=== PATIENT | male | born 1945 | race Caucasian/White ===

== ENCOUNTER 2017-05-27 14:35 | Inpatient (IN) | payer MEDICARE, OTHER ==
[~2017-05-27] VITALS: Ht 185.4 cm; Wt 130.9 kg
[~2017-05-27 14:35] MED LIST: ASPI-628 PO; ATOR40TA69 PO; CARV6.25 PO; CLOP75TA3 PO; ESOM40CA41 PO; HYDR25TA4 PO; INSU100I SUBQ; INSU100V7 SUBQ; METF500T4 PO; NITR0.4T SL; TAMS0.4C98 PO
--- NOTE | 2017-05-27 15:09 | ED.REPORT ---
HPI-Chest Pain 40 and Over Date of Service May 27, 2017 ED Provider: Dr. Galeano Pt is a 71 year old male with a hx of stents x2, DM, HTN and GERD presenting to the ED via EMS complaining of 5/10 chest pain onset at work while doing heavy lifting at 1350 today. The pain is currently at about a 1.5/10 and he describes it as a dull pressure. He denies any numbness, SOB, nausea, vomiting, fever, or any other symptoms. About 3 years ago he had similar pain and was admitted to [facility]. Nursing Notes Stated Complaint: CHEST PAIN Chief Complaint: chest pain Nursing Notes Reviewed: Yes Allergies: Coded Allergies: No Known Allergies (Unverified , 12/07/13) Scheduled Aspirin (Aspir 81) 81 Mg Tablet.dr 81 MG PO DAILY Atorvastatin Calcium (Atorvastatin Calcium) 40 Mg Tablet 40 MG PO DAILY Carvedilol (Coreg) 6.25 Mg Tablet 6.25 MG PO DAILY Clopidogrel Bisulfate (Plavix) 75 Mg Tablet 75 MG PO DAILY last dose 02/24 Esomeprazole Magnesium (Nexium) 40 Mg Capsule.dr 40 MG PO DAILY Hydrochlorothiazide (Hydrochlorothiazide) 25 Mg Tablet 25 MG PO DAILY Insulin Glargine (Lantus U100 Insulin Vial) 100 Unit/Ml Vial 40 UNIT SUBQ QPM- INSULIN Metformin (Metformin) 500 Mg Tablet 500 MG PO BIDWM am/ afternoon Metformin (Metformin) 500 Mg Tablet 750 MG PO DAILYWM PM dose Tamsulosin (Flomax) 0.4 Mg Capsule 0.4 MG PO DAILY Scheduled PRN Insulin Aspart (NovoLOG U-100 Pen) 100 Unit/Ml Insuln.pen Unknown Dose PRN blood sugar per sliding scale Nitroglycerin SL (Nitrostat) 0.4 Mg Tab.subl 0.4 MG SL Q5MIN PRN PRN For Chest Pain General Time Seen by MD: 15:09 Chief Complaint Chest pain Hx Obtained From: Patient, EMS Arrived By: Ambulance Sudden in Onset?: Yes Onset Occurred: 1 - 4 hours ago Symptom Duration: Since onset Quality: Dull, Painful, Pressure Severity: Current: Pain level 1 out of 10 Severity: Maximum: Pain level 7 out of 10 Recent Healthcare: No recent doctor visit, No recent hospitalization Similar Sx Previous: Yes Past Medical History Past Medical History Hx of kidney stones Bladder papillary urothelial carcinoma, grade 2/3. Reports: Diabetes mellitus, GERD, Hypertension Past Surgical History Cardiac stents x2 Smoking History Current Every Day Smoker, Light Tobacco Smoker Social History Alcohol Use: Denies alcohol use Drug Use: Denies drug use Ambulatory Status Independent Review of Systems Constitutional: Denies: Fever Respiratory: Denies: Shortness of breath Cardiovascular: Reports: Chest pain GI: Denies: Nausea, Vomiting Neurologic: Denies: Numbness Complete sys rev & neg: except as marked. Physical Exam Initial Vital Signs Vital Signs (First) Date Time Temp Pulse Resp B/P Pulse Ox O2 Delivery O2 Flow Rate FiO2 05/27/17 15:10 36.5 74 17 92/66 95 Room Air 05/27/17 16:40 2 Initial VS: Reviewed, Vital signs normal Head / Eyes: Atraumatic, Normocephalic, PERRL ENT: Mucous membranes moist, Conjunctiva normal, No scleral icterus Skin: Warm, Dry, No cyanosis Neurologic: Alert, Oriented, Nonfocal Psychiatric: Mood/affect normal, Behavior normal, Normal thought content General/Constitutional: Awake, Alert, No acute distress Respiratory / Chest: Atraumatic, Breath sounds NL, Breath sounds = bilat, No respiratory distress Cardiovascular: Heart rate NL, Regular rhythm Heart Sounds / Murmur: Positive: Systolic murmur present.. (III/) Abdomen: Atraumatic, Soft, Non-tender Lower Extremity / Pelvis / MS: Atraumatic, Neurologic intact, Vascular intact 2+ edema Interpretation & Diagnostics Lab Results Interpretation Result Diagram: 05/27/17 1535 05/27/17 1535 Test 05/27/17 15:35 White Blood Count 7.7th/mm3 (3.8-10.1) Red Blood Count 4.52mil/mm3 (4.40-5.80) Hemoglobin 13.1g/dL (13.8-17.2) Hematocrit 40.5% (41.0-50.0) Mean Corpuscular Volume 89.6fL (81-100) Mean Corpuscular Hemoglobin 29.0pg (27.0-35.0) Mean Corpuscular Hemoglobin Concent 32.3% (32.0-37.0) Red Cell Distribution Width 14.9% (12.3-15.4) Platelet Count 222bil/L (150-400) Neutrophils (%) (Auto) 74.0% (40-74) Lymphocytes (%) (Auto) 17.4% (14-46) Monocytes (%) (Auto) 6.6% (4-12) Eosinophils (%) (Auto) 1.4% (0-5) Basophils (%) (Auto) 0.3% (0-3) Activated Partial Thromboplast Time 25.9sec (22.8-33.0) Sodium Level 141mEq/L (134-144) Potassium Level 4.1mEq/L (3.5-5.2) Chloride Level 102mEq/L (97-108) Carbon Dioxide Level 26mmol/L (18-29) Blood Urea Nitrogen 28mg/dL (8-27) Creatinine 1.17mg/dL (0.76-1.27) Estimat Glomerular Filtration Rate 66mL/min (>59) Glucose Level 168mg/dL (60-99) Calcium Level 9.3mg/dL (8.5-10.1) Magnesium Level 1.5mg/dL (1.6-2.6) Total Bilirubin 0.4mg/dL (0.0-1.2) Aspartate Amino Transf (AST/SGOT) 17U/L (0-50) Alanine Aminotransferase (ALT/SGPT) 23U/L (0-44) Alkaline Phosphatase 97U/L (25-160) Troponin T 0.042ug/L (0.0-0.011) Total Protein 6.1g/dL (6.4-8.4) Albumin 3.7g/dL (3.4-5.0) Hold Quinonez Top Tube Received (Received) ECG Interpretation ECG Interpretation: RBBB. Normal intervals. No acute ST or T wave changes. RBBB unchanged from previous. Time: 15:28 Interpreted by: ED physician Normal ECG Interpretation: Normal rate (66), Normal sinus rhythm X-Ray Chest Interpretation Chest Xray Interpretation: IMPRESSION: Patchy bibasilar consolidative opacities suggesting aspiration or pneumonia. Recommend clinical correlation and continued radiographic followup. Dictated by: Alex Boston M.D. on 05/27/2017 at 16:22 View: Portable, 1 view Interpretation / Wet Read by: Interpret - Radiologist Re-Eval/Medical Decision Med Decision/Clinical Course Cardiology was paged but they never called back. This patient has a significant cardiac history and presents with concerning chest pain. He had some minimal discomfort upon arrival here that resolved while here. He does not have any acute EKG changes. The patient was not given metoprolol given his low blood pressure. The patient had been given aspirin in the field and once his troponin was back he was started on heparin. Time of Eval: 15:51 Patient Status: Condition improved Re-Evaluation/Progress Note: Chest pain is now resolved. Time of Eval: 16:26 Patient Status: Condition improved Re-Evaluation/Progress Note: Discussed lab results and plan for admission or transfer. Pt understands and agrees. Consultation : Referral / Consult Name: Raman Allan MD Consulted With: Hospitalist Call Returned at: 17:00 Studio Technician Video Operator: Will see patient, Agrees with plan, Accepts admit Counseled Regarding: Diagnosis, Lab results, Need for admission Discharge & Departure Primary Impression: Non-STEMI (non-ST elevated myocardial infarction) Disposition: ADMITTED TO HOSPITAL Discharge Condition All VS Reviewed: Yes Condition: Improved Referrals: Serafin Dyer DO (PCP) Hiwot Attestation Portions of this note were transcribed by Leilani Pedro. I, Dr. Galeano personally performed the history, physical exam and medical decision-making; I reviewed and confirmed the accuracy of the information in the transcribed note. Signed by : Hiwot Kapoor, 05/27/2017. copies to: Serafin Dyer Jena M MD May 27, 2017 15:09 LEILANI PEDRO May 27, 2017 15:22
[2017-05-27 15:10] VITALS: BP 92/66; PULSE 74; RESP 17; O2SAT 95
[2017-05-27 15:50] LABS: BASOPHILS % (AUTO) 0.3 % (0-3); EOSINOPHILS % (AUTO) 1.4 % (0-5); MONOCYTES % (AUTO) 6.6 % (4-12); Mean Corpuscular Volume 89.6 fL (81-100); Platelet Count 222 bil/L (150-400)
[2017-05-27] MEDS ORDERED: Heparin 5,000 Unit/mL Inj IVPUSH ONE (16:25)
[2017-05-27] MEDS ORDERED: Heparin 25K Unit/500mL 0.45 NS 25,000 UNIT in IV Premix 1 EACH IV ONE (16:25)
--- NOTE | 2017-05-27 16:25 | DRSVH ---
PROCEDURE: X-RAY CHEST ONE VIEW, PORTABLE ([id number]) INDICATIONS: CP TECHNIQUE: One view of the chest was acquired. COMPARISON: None. FINDINGS: Surgical changes and devices: None. Lungs and pleura: No pleural effusions or pneumothorax. Patchy bibasilar consolidative opacities Mediastinum: Mediastinal contours appear normal. Heart size is normal. Bones and chest wall: No suspicious bony lesions. Overlying soft tissues appear unremarkable. IMPRESSION: Patchy bibasilar consolidative opacities suggesting aspiration or pneumonia. Recommend cl inical correlation and continued radiographic followup. Dictated by: Alex Boston M.D. on 05/27/2017 at 16:22 Approved by: Alex Boston M.D. on 05/27/2017 at 16:24
[2017-05-27 16:28] LABS: Magnesium 1.5 mg/dL (1.6-2.6)
[2017-05-27 16:31] LABS: TROPONIN T 0.042 ug/L (0.0-0.011)
[2017-05-27 16:40] VITALS: BP 102/61; PULSE 64; RESP 18; O2SAT 95
[2017-05-27] MEDS ORDERED: Magnesium Sulf 2 Gm/50mL Water 2 GM in IV Premix 1 EACH IV ONE (17:00)
[2017-05-27 17:58] VITALS: BP 103/60; PULSE 60; RESP 22; O2SAT 95
[2017-05-27] MEDS ORDERED: Alum-Mag Hydrox-Simeth 30 mL Suspension PO PRN (18:00)
[2017-05-27] MEDS ORDERED: Senna-Docusate 8.6-50 mg Tablet PO PRN (18:00)
[2017-05-27] MEDS ORDERED: Polyethylene Glycol (PEG) 17 Gm Powder PO PRN (18:00)
[2017-05-27] MEDS ORDERED: Ondansetron 2 mg/mL 2 mL Inj IVPUSH PRN (18:00)
[2017-05-27] MEDS ORDERED: Atropine 1 mg/10 mL (Code) Syringe IVPUSH PRN (18:00)
--- NOTE | 2017-05-27 18:15 | PCM.HPMED ---
Subjective Date of Service May 27, 2017 Primary Provider: Admitting Physician: Aditya Lawton MD Primary Care Physician: Serafin Dyer DO Attending Physician: Aditya Lawton MD Chief Complaint: Chest pain History of Present Illness: 71-year-old male with a history of NE with stents 2, 50+ pack year history of smoking, diabetes, and hypertension who presented to emergency department today from his work via EMS due to 710 dull, substernal, nonradiating chest pain that started while he was lifting heavy boxes around 1400. The patient states that the pain set mass chest and did not radiate, was free of diaphoresis, and denies any shortness of breath, lightheadedness, or dizziness. Patient was given nitroglycerin by EMS which he states helped resolve the pain. Patient denies recent fever, chills, nausea, vomiting, or numbness/tingling. Patient's last NE was November 2013 and he states that Dr. Olvera stented to his arteries. Patient states that he was on Plavix until about a year ago when he was instructed to stop taking the Plavix and only take aspirin. Patient states he is compliant with his medications Emergency department the patient's chest pain completely resolved with morphine and nitroglycerin. First troponin returned elevated at 0.042. Patient also has some low magnesium. EKG demonstrated normal sinus rhythm with a right bundle branch block. Review of Systems: Complete review of systems performed; pertinent positives and negatives per history of present illness, all other systems reviewed and are negative Allergies Coded Allergies: No Known Allergies (Unverified , 12/07/13) Home Medications Aspirin (Aspir 81) 81 Mg Tablet.dr 81 MG PO DAILY Atorvastatin Calcium (Atorvastatin Calcium) 40 Mg Tablet 40 MG PO DAILY Carvedilol (Coreg) 6.25 Mg Tablet 6.25 MG PO DAILY Esomeprazole Magnesium (Nexium) 40 Mg Capsule.dr 40 MG PO DAILY Hydrochlorothiazide (Hydrochlorothiazide) 25 Mg Tablet 25 MG PO DAILY Insulin Glargine (Lantus U100 Insulin Vial) 100 Unit/Ml Vial 40 UNIT SUBQ QPM- INSULIN Metformin (Metformin) 500 Mg Tablet 500 MG PO BIDWM am/ afternoon Metformin (Metformin) 500 Mg Tablet 750 MG PO DAILYWM PM dose Tamsulosin (Flomax) 0.4 Mg Capsule 0.4 MG PO DAILY Insulin Aspart (NovoLOG U-100 Pen) 100 Unit/Ml Insuln.pen Unknown Dose PRN blood sugar per sliding scale Nitroglycerin SL (Nitrostat) 0.4 Mg Tab.subl 0.4 MG SL Q5MIN PRN PRN For Chest Pain PMH Type II diabetes Hypertension Papillary bladder urothelial carcinoma GERD Nicotine dependence Surgical History Cardiac stents x2 Family History Mother of lung cancer Social History Hx Alcohol Use: Yes (RARE) Hx Substance Use: No Smoking Status: Current Every Day Smoker (50+ pack years), Light Tobacco Smoker Living Arrangement: with Family Exam Vital Signs Vital Sign - Last Date Time Temp Pulse Resp B/P Pulse Ox O2 Delivery O2 Flow Rate FiO2 05/27/17 17:58 36.3 60 22 103/60 95 Room Air 05/27/17 16:40 2 Exam General: Pleasant appearing male in only mild distress but good humored HEENT: PERRLA, EOMI, nonicteric, membranes moist Lymph: No lymphadenopathy Cardio: Regular rate and rhythm Respiratory: CTA bilaterally; decreased breath sounds bilaterally, mild wheezing Abdomen: Soft, positive bowel sounds, nontender, nondistended Extremities: Mild edema, sensation intact; no clubbing Psych: Appropriate mood and affect Neuro: CN II through XII grossly intact, sensation intact throughout Skin: No rash Lab and Diagnostics Result Diagram: 05/27/17 1535 05/27/17 1535 X-Rays, CTs and MRIs Chest x-ray IMPRESSION: Patchy bibasilar consolidative opacities suggesting aspiration or pneumonia. Recommend clinical correlation and continued radiographic followup Dictated by: Alex Boston M.D. on 05/27/2017 at 16:22 12-lead ECG See history of present illness Assessment & Plan 71-year-old male with numerous cardiac risk factors and previous NE requiring 2 stents presents emergency department with acute chest pain on exertion associated with nitroglycerin with no ST elevations on EKG but positive troponin NSTEMI; present on admission; ongoing -Presents with acute chest pain relieved with nitroglycerin; positive troponin -Numerous cardiac risk factors -ED discussed with Dr. Epstein and cardiology will see the patient tomorrow morning to assess for cath -If any signs of worsening chest pain contact cardiology immediately -Started on heparin drip -Patient took aspirin this morning -We will hold Plavix until sure the patient's nonsurgical candidate -Smoking cessation discussed -Nothing by mouth until tomorrow -Atorvastatin 40 mg taken already today -Echo tomorrow -Morphine and nitroglycerin -Heart rate in the 60s and beta vj with hold -Continue daily aspirin -trend troponin Hypomagnesemia; present on admission; ongoing -Replace with 2 gm Hypertension; present on admission; ongoing -Patient's blood pressure is well controlled at the moment -Continue on carvedilol and hydrochlorothiazide after med rec confirmed Type II diabetes; present on admission; ongoing -Patient is on metformin 500 mg twice a day -Also on 40 units of Lantus at bedtime; NovoLog sliding scale -Continue Lantus 20 units tonight -We will place on low correctional -Hold metformin Nicotine dependence; present on admission; ongoing -[id number] history -Patient currently down to half a pack a day -Nicotine patch -Smoking cessation discussed Hyperlipidemia-continue atorvastatin GERD-famotidine Disposition: Patient is being admitted to inpatient status with expected length of stay greater than two midnights due to to severity of presentation, duration of treatment, and risks of adverse events disposition Full code Pain Evaluation: Adequate Pain Control GI Prophylaxis: H2 vj VTE Prophylaxis: Other (heparin drip) Resuscitation Status: CPR: Attempt Resuscitation Darryl Wood DO May 27, 2017 18:15
[2017-05-27] MEDS ORDERED: Glucose 40% Oral Gel 15 Gm Tube PO PRN (18:25)
[2017-05-27] MEDS ORDERED: Heparin 25K Unit/500mL 0.45 NS 25,000 UNIT in IV Premix 1 EACH IV SCH (18:25)
[2017-05-27 18:38] VITALS: BP 103/60; PULSE 60; RESP 22; O2SAT 95
[2017-05-27 19:27] VITALS: PULSE 59
[2017-05-27 19:30] VITALS: BP 143/65; PULSE 65; RESP 20; O2SAT 95
[2017-05-27] MEDS ORDERED: TAMS0.4C29 PO (20:49)
[2017-05-27] MEDS ORDERED: POTA20TA16 PO (20:49)
[2017-05-27] MEDS ORDERED: IPRA4AER INH (20:49)
[2017-05-27] MEDS ORDERED: INSU100I13 SUBQ (20:49)
[2017-05-27] MEDS ORDERED: FLUT1DIS5 INH (20:49)
[2017-05-27] MEDS ORDERED: FINA5TAB9 PO (20:49)
[2017-05-27] MEDS ORDERED: TRAZ-118 PO (20:49)
[2017-05-27] MEDS ORDERED: OMEP20CA11 PO (20:49)
[2017-05-27] MEDS ORDERED: LOSA100T29 PO (20:49)
[2017-05-27] MEDS ORDERED: ASPI-973 PO (20:51)
[2017-05-27] MEDS: Insulin LISPRO 300 Unit/3 mL Inj SUBQ SCH (20:58)
[2017-05-27] MEDS: 0.9% Sodium Chloride 1,000 ML IV SCH (21:00)
[2017-05-27] MEDS: Sodium Chloride LOK Flush 10 mL Syringe IVFLUSH SCH (21:05)
[2017-05-27 22:29] LABS: APPEARANCE,URINE HAZY (CLEAR,HAZY); COLOR,URINE YELLOW (YELLOW); OCCULT BLOOD,URINE TRACE (NEGATIVE); PH,URINE 5.5 (5.0-8.0); UROBILINOGEN,URINE NORMAL (NORMAL)
[2017-05-27] MEDS: Insulin GLARgine 100 Unit/mL Syringe SUBQ SCH (23:33)
[2017-05-28] VITALS (7 sets, daily range): BP systolic 120–179; BP diastolic 65–88; PULSE 57–65; RESP 20; O2SAT 93–95
[2017-05-28] MEDS: Heparin 5,000 Unit/mL Inj IVPUSH PRN ×4 (01:44→18:45)
[2017-05-28 01:46] LABS: TROPONIN T 0.031 ug/L (0.0-0.011)
[2017-05-28 07:18] LABS: BASOPHILS % (AUTO) 0.3 % (0-3); EOSINOPHILS % (AUTO) 2.2 % (0-5); Mean Corpuscular Hemoglobin 28.6 pg (27.0-35.0); Mean Corpuscular Volume 90.7 fL (81-100); NEUTROPHILS % (AUTO) 69.4 % (40-74); Platelet Count 197 bil/L (150-400)
[2017-05-28] MEDS: Insulin LISPRO 300 Unit/3 mL Inj SUBQ SCH ×4 (07:51→21:17)
[2017-05-28] MEDS: 0.9% Sodium Chloride 1,000 ML IV SCH ×2 (07:51→16:55)
[2017-05-28] MEDS: Sodium Chloride LOK Flush 10 mL Syringe IVFLUSH SCH ×2 (07:52→15:55)
[2017-05-28 07:53] LABS: TROPONIN T 0.03 ug/L (0.0-0.011)
[2017-05-28 08:05] LABS: Magnesium 1.9 mg/dL (1.6-2.6); Phosphorus 4.1 mg/dL (2.5-4.9)
--- NOTE | 2017-05-28 12:59 | DRSVH ---
[facility] [address] [place] [address] Echocardiogram Report Name: JOHN ALVARES LStudy Date: 05/28/2017 Height: 73 in Hospital Exam Location: [facility] Weight: 285 lb Gender: Male BSA: 2.5 m2 : 1945 Age: 71 yrs BP: 126/73 mmHg Reason For Study: Chest pain Ordering Physician: Performed By: Rebekah Kirby Referring Physician: Serafin Dyer Interpretation Summary The left ventricle is normal in size. Left ventricular systolic function is normal without focal wall motion abnormalities. The ejection fraction is estimated to be 60-65%. The right ventricle is normal in size, thickness and function. The right ventricular systolic pressure is estimated at 32 mmHg assuming a right atrial pressure of 8 mm Hg. The left atrium is mildly dilated. Right atrial size is normal. There is moderate aortic stenosis. The calculated aortic valve area is 1.4 cm2. The peak aortic velocity is 3.2 m/sec. The peak aortic velocity on the previous exam was 3.2 m/sec. There is mild aortic regurgitation. There is no other significant valvular heart disease. The aortic root is mildly dilated. The ascending aorta is mild-moderately enlarged. The aortic arch is mildly enlarged. Procedure: A two-dimensional transthoracic echocardiogram with color flow and Doppler was performed. The study quality was technically adequate. Comparison is made with the echocardiogram of 06-17-16. The patient was in normal sinus rhythm during the exam. Left Ventricle: The left ventricle is normal in size. There is borderline concentric left ventricular hypertrophy. Left ventricular systolic function is normal without focal wall motion abnormalities. The ejection fraction is estimated to be 60-65%. Assessment of diastolic parameters indicates normal left ventricular diastolic function and normal filling pressures. Right Ventricle: The right ventricle is normal in size, thickness and function. Atria: The left atrium is mildly dilated. Right atrial size is normal. The interatrial septum is intact with no evidence for an atrial septal defect. Mitral Valve: The mitral valve is normal in structure and function. There is trace mitral regurgitation. Aortic Valve: The aortic valve is trileaflet. The aortic valve is normal in structure but functionally abnormal. There is moderate aortic stenosis. The calculated aortic valve area is 1.4 cm2. The peak aortic velocity is 3.2 m/sec. The peak aortic velocity on the previous exam was 3.2 m/sec. The aortic valve mean gradient is 20 mmHg. Severity ratio is 0.31. There is mild aortic regurgitation. Tricuspid Valve: The tricuspid valve is normal in structure and function. There is trace tricuspid regurgitation. The right ventricular systolic pressure is estimated at 32 mmHg assuming a right atrial pressure of 8 mm Hg. Pulmonic Valve: The pulmonic valve is normal in structure and function. There is trace pulmonic regurgitation. There is no other significant valvular heart disease. Great Vessels: The aortic root is mildly dilated. The ascending aorta is mild-moderately enlarged. The aortic arch is mildly enlarged. The IVC is dilated (diameter is greater than 2.1 cm) yet it collapses greater than 50% with a sniff. This suggests a right atrial pressure of 8 mm Hg. Pericardium/ Pleura There is no pericardial effusion. There is no pleural effusion. MMode/2D Measurements & Calculations LVIDd LA dimension: 4.4 cm RA long axis: 5.9 cm LVOT diam: 2.4 cm : 6.4 cm AoV Openin.6 cm LVIDs LA A2 area: 29.9 cm RA area: 21.2 cm Ao root diam : 4.4 cm LA A4 area: 21.8 cm RA vol: 64.5 ml FS: 30.6 % LA length (vol) RA : 25.8 ml/m Aortic Jxn: 3.5 cm IVSd: 1.1 cm RVDd major: 6.5 cm asc Aorta Diam LVPWd LA vol: 92.9 ml : 0.9cm LA vol index Ao Arch Diam (Prox Trans): 3.5 cm IVC diam: 2.4 cm ELIAZAR (plan) LV roe. diameter/BSA LV sys. diameter/BSA RVD1 (basal) : 2.1 cm2 (cm/m^2): 2.5 (cm/m^2): 1.8 : 4.3 cm RVD2 (mid) : 3.4 cm Doppler Measurements & Calculations Ao V2 max MV E max edmundo MV E/A: 1.3 TR max edmundo : 318.9 cm/sec : 77.8 cm/sec Med Peak E' Edmundo : 247.0 cm/sec Ao max PG MV A max edmundo TR max PG : 40.7 mmHg : 58.7 cm/sec E/E' med: 17.2 : 24.4 mmHg Ao mean PG MV P1/2t: 70.8 msec Lat Peak E' Edmundo PA V2 max : 19.6 mmHg : 68.1 cm/sec LVOT Max Edmundo E/E' lat: 13.9 PA mean PG : 83.3 cm/sec E/e' average : 0.85 mmHg ELIAZAR(I,D): 1.4 cm PA Accel Time sev ratio: 0.31 MV A dur: 0.13 sec : 0.18 sec AI P1/2t : 768.1 msec AI dec slope : 151.6 cm/s2c MV dec time MV P1/2t max edmundo Ao V2 mean LV V1 max PG : 0.24 sec : 201.4 cm/sec Ao V2 VTI: 78.2 cm LV V1 VTI MVA(P1/2t): 3.1 cm2 : 24.4 cm ELIAZAR(V,D): 1.2 cm2 PA V2 mean ELIAZAR indexed to BSA : 41.7 cm/sec (cm^2/m^2): 0.56 Reading Physician:YOAN
--- NOTE | 2017-05-28 17:31 | PCM.PNMED ---
Subjective Date of Service May 28, 2017 Subjective Patient denies any chest pain. He is anxious because he wants to eat and says he has not eaten for 2 days. Exam Vital Signs Vital Sign - Last Date Time Temp Pulse Resp B/P Pulse Ox O2 Delivery O2 Flow Rate FiO2 05/28/17 14:09 36.4 60 20 136/69 95 Nasal Cannula 2.00 Intake and Output 05/27/17 05/27/17 05/28/17 Cumulative From/Thru 15:00 23:00 07:00 05/27/17 15:10 - 05/28/17 06:35 Intake Total 1000 ml 1004 ml 2004 ml Output Total 900 ml 900 ml Balance 1000 ml 104 ml 1104 ml Intake Oral 0 ml 0 ml IV Total 1000 ml 1004 ml 2004 ml Output Urine Total 900 ml 900 ml Exam Constitutional: Middle-aged male who appears older than his stated age Head: Normocephalic atraumatic Chest: Clear to auscultation Cor: Regular rate and rhythm S1-S2 with 2/6 systolic ejection murmur Abdomen: Soft nontender bowel sounds present Extremities: Trace bilateral pedal edema Psych: Patient is somewhat anxious and irritable Neuro: Alert and oriented 3, motor strength is intact bilaterally IVs and Medications Medications Reviewed: Medications were reviewed in detail Lab and Diagnostics Laboratory Tests 72 Hours Test 05/27/17 15:35 05/27/17 18:13 05/27/17 20:55 05/27/17 22:06 White Blood Count 7.7th/mm3 (3.8-10.1) Red Blood Count 4.52mil/mm3 (4.40-5.80) Hemoglobin 13.1g/dL (13.8-17.2) Hematocrit 40.5% (41.0-50.0) Mean Corpuscular Volume 89.6fL (81-100) Mean Corpuscular Hemoglobin 29.0pg (27.0-35.0) Mean Corpuscular Hemoglobin Concent 32.3% (32.0-37.0) Red Cell Distribution Width 14.9% (12.3-15.4) Platelet Count 222bil/L (150-400) Neutrophils (%) (Auto) 74.0% (40-74) Lymphocytes (%) (Auto) 17.4% (14-46) Monocytes (%) (Auto) 6.6% (4-12) Eosinophils (%) (Auto) 1.4% (0-5) Basophils (%) (Auto) 0.3% (0-3) Activated Partial Thromboplast Time 25.9sec (22.8-33.0) Sodium Level 141mEq/L (134-144) Potassium Level 4.1mEq/L (3.5-5.2) Chloride Level 102mEq/L (97-108) Carbon Dioxide Level 26mmol/L (18-29) Blood Urea Nitrogen 28mg/dL (8-27) Creatinine 1.17mg/dL (0.76-1.27) Estimat Glomerular Filtration Rate 66mL/min (>59) Glucose Level 168mg/dL (60-99) Calcium Level 9.3mg/dL (8.5-10.1) Magnesium Level 1.5mg/dL (1.6-2.6) Total Bilirubin 0.4mg/dL (0.0-1.2) Aspartate Amino Transf (AST/SGOT) 17U/L (0-50) Alanine Aminotransferase (ALT/SGPT) 23U/L (0-44) Alkaline Phosphatase 97U/L (25-160) Total Creatine Kinase 327U/L (21-232) Creatine Kinase MB 16.8ng/mL (0.0-10.4) Creatine Kinase MB % 5.1% (0.0-5.0) Troponin T 0.042ug/L (0.0-0.011) 0.031ug/L (0.0-0.011) Total Protein 6.1g/dL (6.4-8.4) Albumin 3.7g/dL (3.4-5.0) Hold Quinonez Top Tube Received (Received) Hemoglobin A1c 8.1% (4.8-5.6) Urine Color Yellow (YELLOW) Urine Appearance Hazy (CLEAR,HAZY) Urine pH 5.5 (5.0-8.0) Urine Specific [place] 1.025 (1.003-1.035) Urine Protein Negativemg/dL (NEG,TRACE) Urine Glucose (UA) 100mg/dL (NEGATIVE) Urine Ketones Negativemg/dL (NEGATIVE) Urine Occult Blood Trace (NEGATIVE) Urine Nitrite Negative (NEGATIVE) Urine Bilirubin Negative (NEGATIVE) Urine Urobilinogen Normalmg/dL (NORMAL) Urine Leukocyte Esterase Negative (NEGATIVE) Urine RBC 3-10/hpf (0-2) Urine WBC 0-5/hpf (0-5) Urine Epithelial Cells Occasional/hpf (NONE-MOD) Urine Crystals None seen (NONE SEEN) Urine Bacteria Few/hpf (NONE-FEW) Urine Hyaline Casts None/lpf (NONE) Urine Granular Casts None seen (NONE SEEN) Urine Waxy Casts None seen (NONE SEEN) Urine Red Blood Cell Casts None seen (NONE SEEN) Urine White Blood Cell Casts None seen (NONE SEEN) Urine Mucus Present (None Seen) Urine Trichomonas None seen (NONE SEEN) Urine Yeast None (NONE SEEN) Urinalysis Comment None Urine Culture Reflexed Not indicated Test 05/28/17 00:34 05/28/17 06:30 05/28/17 12:43 Activated Partial Thromboplast Time 32.4sec (22.8-33.0) 44.8sec (22.8-33.0) 40.6sec (22.8-33.0) Total Creatine Kinase 256U/L (21-232) Creatine Kinase MB 12.4ng/mL (0.0-10.4) Creatine Kinase MB % 4.8% (0.0-5.0) Troponin T 0.031ug/L (0.0-0.011) 0.030ug/L (0.0-0.011) White Blood Count 7.8th/mm3 (3.8-10.1) Red Blood Count 4.41mil/mm3 (4.40-5.80) Hemoglobin 12.6g/dL (13.8-17.2) Hematocrit 40.0% (41.0-50.0) Mean Corpuscular Volume 90.7fL (81-100) Mean Corpuscular Hemoglobin 28.6pg (27.0-35.0) Mean Corpuscular Hemoglobin Concent 31.5% (32.0-37.0) Red Cell Distribution Width 15.0% (12.3-15.4) Platelet Count 197bil/L (150-400) Neutrophils (%) (Auto) 69.4% (40-74) Lymphocytes (%) (Auto) 20.0% (14-46) Monocytes (%) (Auto) 8.0% (4-12) Eosinophils (%) (Auto) 2.2% (0-5) Basophils (%) (Auto) 0.3% (0-3) Sodium Level 138mEq/L (134-144) Potassium Level 3.9mEq/L (3.5-5.2) Chloride Level 100mEq/L (97-108) Carbon Dioxide Level 24mmol/L (18-29) Blood Urea Nitrogen 26mg/dL (8-27) Creatinine 0.97mg/dL (0.76-1.27) Estimat Glomerular Filtration Rate 82mL/min (>59) Glucose Level 149mg/dL (60-99) Calcium Level 9.2mg/dL (8.5-10.1) Phosphorus Level 4.1mg/dL (2.5-4.9) Magnesium Level 1.9mg/dL (1.6-2.6) Total Bilirubin 0.3mg/dL (0.0-1.2) Aspartate Amino Transf (AST/SGOT) 17U/L (0-50) Alanine Aminotransferase (ALT/SGPT) 22U/L (0-44) Alkaline Phosphatase 99U/L (25-160) Total Protein 6.1g/dL (6.4-8.4) Albumin 3.5g/dL (3.4-5.0) Triglycerides Level 192mg/dL (0-149) Cholesterol Level 127mg/dL (100-199) LDL Cholesterol, Calculated 51.600mg/dL (0-99) VLDL Cholesterol 38.400mg/dL HDL Cholesterol 37mg/dL (>39) Cholesterol/HDL Ratio 3.43 (0.0-4.4) Procalcitonin 0.10ng/mL (0.00-0.08) Result Diagram: 05/28/1762905/28/17 0630 X-Rays, CTs and MRIs Chest x-ray IMPRESSION: Patchy bibasilar consolidative opacities suggesting aspiration or pneumonia. Recommend clinical correlation and continued radiographic followup Dictated by: Alex Boston M.D. on 05/27/2017 at 16:22 12-lead ECG See history of present illness Cardiac Echo Impressions Name: JOHN ALVARES LStudy Date: 0 05/28/2017 Height: 73 in Hospital Exam Location: [facility] Weight: 285 lb Gender: Male BSA: 2.5 m2 : 1945 Age: 71 yrs BP: 126/73 mmHg Reason For Study: Chest pain Ordering Physician: Performed By: Rebekah Kirby Referring Physician: Serafin Dyer Interpretation Summary The left ventricle is normal in size. Left ventricular systolic function is normal without focal wall motion abnormalities. The ejection fraction is estimated to be 60-65%. The right ventricle is normal in size, thickness and function. The right ventricular systolic pressure is estimated at 32 mmHg assuming a right atrial pressure of 8 mm Hg. The left atrium is mildly dilated. Right atrial size is normal. There is moderate aortic stenosis. The calculated aortic valve area is 1.4 cm2. The peak aortic velocity is 3.2 m/sec. The peak aortic velocity on the previous exam was 3.2 m/sec. There is mild aortic regurgitation. There is no other significant valvular heart disease. The aortic root is mildly dilated. The ascending aorta is mild-moderately enlarged. The aortic arch is mildly enlarged. Assessment & Plan 71-year-old male with numerous cardiac risk factors and previous GA requiring 2 stents presents emergency department with acute chest pain on exertion associated with nitroglycerin with no ST elevations on EKG but positive troponin NSTEMI; present on admission; ongoing -Presents with acute chest pain relieved with nitroglycerin; positive troponin -Numerous cardiac risk factors -ED discussed with Dr. Epstein and cardiology will see the patient today to assess for cath -If any signs of worsening chest pain contact cardiology immediately -Started on heparin drip -Patient took aspirin this morning -We will hold Plavix until sure the patient's nonsurgical candidate -Smoking cessation discussed -Nothing by mouth until tomorrow -Atorvastatin 40 mg daily -Echo which was done today see report -Morphine and nitroglycerin -Heart rate in the 60s and beta vj with hold -Continue daily aspirin -trend troponin -Await cardiology seeing the patient today who was called by nursing and patient will not be having a cardiac catheterization today so he is allowed to eat Hypomagnesemia; present on admission; ongoing -Replace with 2 gm Hypertension; present on admission; ongoing -Patient's blood pressure is well controlled at the moment -Continue on carvedilol and hydrochlorothiazide after med rec confirmed Type II diabetes; present on admission; ongoing -Patient is on metformin 500 mg twice a day -Also on 40 units of Lantus at bedtime; NovoLog sliding scale -Continue Lantus 20 units tonight -We will place on low correctional -Hold metformin Nicotine dependence; present on admission; ongoing -[id number] history -Patient currently down to half a pack a day -Nicotine patch -Smoking cessation discussed Hyperlipidemia-continue atorvastatin GERD-famotidine Full code GI Prophylaxis: H2 vj VTE Prophylaxis: Other (heparin drip) Resuscitation Status: CPR: Attempt Resuscitation Time spent 30 minutes Eloise Pruett MD May 28, 2017 17:31
[2017-05-28] MEDS: Insulin GLARgine 100 Unit/mL Syringe SUBQ SCH (21:23)
[2017-05-29] VITALS (13 sets, daily range): BP systolic 128–160; BP diastolic 67–98; PULSE 48–72; RESP 14–24; O2SAT 91–96
[2017-05-29] MEDS: Sodium Chloride LOK Flush 10 mL Syringe IVFLUSH SCH ×5 (00:51→16:30)
[2017-05-29] MEDS: Heparin 5,000 Unit/mL Inj IVPUSH PRN ×3 (00:52→13:27)
[2017-05-29] MEDS ORDERED: 0.9% Sodium Chloride 1,000 ML IV ONE (02:40)
--- NOTE | 2017-05-29 03:23 | CONS ---
[address] [address] CONSULTATION REPORT PATIENT: JOHN ALVARES : 1945 MR#: [id number] ADMIT: 05/27/2017 JOB ID: [id number] DATE OF SERVICE: 05/28/2017 CHIEF COMPLAINT: Chest pain. HISTORY OF PRESENT ILLNESS: This is a 71-year-old man with a history of coronary artery disease, status post percutaneous coronary intervention to right coronary artery and circumflex performed November 2013. 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 He was unloading heavy items such as four boxes of antifreeze and other equipment. While he was unloading boxes, he developed severe substernal chest pain which felt like heartburn. It felt very similar to his prior documented angina, but was somewhat milder in intensity relative to severe pain he had experienced back in 2013. Nevertheless, it was 7/10 in intensity. His transmitter supervisor commented that he did not look well. His colleagues called 911. When medics arrived, he received three doses of sublingual nitroglycerin five minutes apart. He said that the first nitroglycerin took his pain level down from 8/10 to 7/10, the second pill took it down to 4/10, and third pill took it down to 1/10. At this moment in time, he is pain free. Cardiology is consulted to assist with management because of mild troponin T elevation in the setting of normal renal function. PAST MEDICAL HISTORY: 1. History of kidney stones. 2. Bladder papillary urothelial carcinoma. 3. Diabetes. 4. Hypertension. 5. Reflux. 6. History of chronic stable angina, status post two Xience drug-eluting stent deployed to the LAD. FAMILY HISTORY: Mom from lung cancer. SOCIAL HISTORY: He smokes, but wants to quit. He lives with his and he works at an [employer] store. He rarely drinks alcohol. REVIEW OF SYSTEMS: The patient denies hematuria or bright red blood per rectum. He reports shortness of breath and believes he may have COPD. Otherwise, 10 point review of systems is negative. HOME MEDICATIONS: 1. Aspirin 81 mg daily. 2. Lipitor 40 mg daily. 3. Carvedilol 6.25 mg once a day. 4. Losartan 100 mg daily. 5. Hydrochlorothiazide 25 mg daily. 6. Potassium chloride 20 mEq daily. 7. Omeprazole 20 mg daily. 8. Combivent Respimat one puff daily. 9. Advair 500/50 one puff twice a day. 10. Trazodone 100 mg daily. 11. Omeprazole 20 mg daily. 12. Tamsulosin 0.4 mg daily. 13. Lantus 75 units at night. 14. Aspart sliding scale insulin. 15. Metformin. It looks like he takes metformin 500 mg in the morning and 1000 mg at night. 16. Finasteride 5 mg daily. CURRENT MEDICATIONS IN THE HOSPITAL: 1. Atorvastatin 40 mg daily. 2. Carvedilol 6.25 mg twice a day. 3. Heparin drip per ACS protocol. 4. Lantus 20 units at night. 5. Aspirin 81 mg daily. 6. Lispro sliding scale insulin. 7. For whatever reason, it looks like his losartan is on hold. PHYSICAL EXAMINATION: Vital signs: Temperature 36.6. Blood pressure 120/65, up to 129/80. Pulse 57, up to 65 beats per minute. Satting 93% to 95% on 1-2 L nasal cannula. Chronically ill-appearing man in no apparent distress. Eyes: No scleral icterus. Neck: Supple. There is a left-sided carotid bruit. Heart: Normal S1, S2. There is a 3/6 systolic ejection murmur at right upper sternal border. Lungs with diminished breath sounds bilaterally and coarse crackles. Abdomen: Soft with positive bowel sounds. No hepatosplenomegaly. Extremities: Warm, well perfused. His fingers are clubbed. No cyanosis and no edema. Skin: No rashes or lesions. He has discoloration of his facial hair due to smoking. Vascular exam demonstrates intact right common femoral artery pulse with no bruit. LABORATORIES: Reviewed. His creatinine is 1. Transaminases are normal. Troponin T is 0.03. Lipids are at goal. IMAGING: Chest x-ray showed patchy bibasilar opacity suggesting aspiration or pneumonia. Echocardiogram shows moderate aortic stenosis, peak velocity 3 m/sec, normal wall motion and LV systolic function. EKG demonstrates right bundle-branch block. Normal axis. No left ventricular hypertrophy. No significant ST-segment changes. ASSESSMENT AND PLAN: In summary, this is a 71-year-old man with mildly elevated troponin, but classical substernal chest discomfort relieved by nitro in the setting of exertion. The patient has documented history of coronary artery disease and had intervention two years ago. Unfortunately, he continues to smoke. I recommend cardiac catheterization for this patient to elucidate whether he has progression of coronary artery disease. Consent obtained. All questions answered. Thank you very much for the opportunity to participate in this patient's care. Hypertension. I recommend restarting his home losartan. Medical therapy for non-STEMI, heparin until his cath is complete.
[2017-05-29] MEDS: 0.9% Sodium Chloride 1,000 ML IV SCH (04:57)
[2017-05-29] MEDS: Insulin LISPRO 300 Unit/3 mL Inj SUBQ SCH ×3 (08:00→17:30)
--- NOTE | 2017-05-29 13:48 | PCM.PNMED ---
Subjective Date of Service May 29, 2017 Subjective Patient rounded on this morning and is upset that he again is nothing by mouth waiting For procedure. Denies any recurrent symptoms. Exam Vital Signs Vital Sign - Last Date Time Temp Pulse Resp B/P Pulse Ox O2 Delivery O2 Flow Rate FiO2 05/29/17 11:05 36.6 60 22 136/75 95 Room Air 05/29/17 05:35 2.00 Intake and Output 05/28/17 05/28/17 05/29/17 Cumulative From/Thru 15:00 23:00 07:00 05/27/17 15:10 - 05/29/17 06:32 Intake Total 1967 ml 1154 ml 5125 ml Output Total 350 ml 200 ml 1450 ml Balance 1617 ml 954 ml 3675 ml Intake Oral 886 ml 200 ml 1086 ml IV Total 1081 ml 954 ml 4039 ml Output Urine Total 350 ml 200 ml 1450 ml # Voids 3 3 # Bowel Movements 2 2 Exam Constitutional: Obese male who is somewhat agitated Head: Normocephalic atraumatic Chest: Clear to auscultation Cor: Regular rate and rhythm S1-S2 without murmur Abdomen: Soft nontender bowel sounds present Extremities: Trace bilateral pedal edema Neuro: Alert and oriented 3, motor strength is intact bilaterally Lab and Diagnostics Laboratory Tests 72 Hours Test 05/27/17 15:35 05/27/17 18:13 05/27/17 20:55 05/27/17 22:06 White Blood Count 7.7th/mm3 (3.8-10.1) Red Blood Count 4.52mil/mm3 (4.40-5.80) Hemoglobin 13.1g/dL (13.8-17.2) Hematocrit 40.5% (41.0-50.0) Mean Corpuscular Volume 89.6fL (81-100) Mean Corpuscular Hemoglobin 29.0pg (27.0-35.0) Mean Corpuscular Hemoglobin Concent 32.3% (32.0-37.0) Red Cell Distribution Width 14.9% (12.3-15.4) Platelet Count 222bil/L (150-400) Neutrophils (%) (Auto) 74.0% (40-74) Lymphocytes (%) (Auto) 17.4% (14-46) Monocytes (%) (Auto) 6.6% (4-12) Eosinophils (%) (Auto) 1.4% (0-5) Basophils (%) (Auto) 0.3% (0-3) Activated Partial Thromboplast Time 25.9sec (22.8-33.0) Sodium Level 141mEq/L (134-144) Potassium Level 4.1mEq/L (3.5-5.2) Chloride Level 102mEq/L (97-108) Carbon Dioxide Level 26mmol/L (18-29) Blood Urea Nitrogen 28mg/dL (8-27) Creatinine 1.17mg/dL (0.76-1.27) Estimat Glomerular Filtration Rate 66mL/min (>59) Glucose Level 168mg/dL (60-99) Calcium Level 9.3mg/dL (8.5-10.1) Magnesium Level 1.5mg/dL (1.6-2.6) Total Bilirubin 0.4mg/dL (0.0-1.2) Aspartate Amino Transf (AST/SGOT) 17U/L (0-50) Alanine Aminotransferase (ALT/SGPT) 23U/L (0-44) Alkaline Phosphatase 97U/L (25-160) Total Creatine Kinase 327U/L (21-232) Creatine Kinase MB 16.8ng/mL (0.0-10.4) Creatine Kinase MB % 5.1% (0.0-5.0) Troponin T 0.042ug/L (0.0-0.011) 0.031ug/L (0.0-0.011) Total Protein 6.1g/dL (6.4-8.4) Albumin 3.7g/dL (3.4-5.0) Hold Quinonez Top Tube Received (Received) Hemoglobin A1c 8.1% (4.8-5.6) Urine Color Yellow (YELLOW) Urine Appearance Hazy (CLEAR,HAZY) Urine pH 5.5 (5.0-8.0) Urine Specific [place] 1.025 (1.003-1.035) Urine Protein Negativemg/dL (NEG,TRACE) Urine Glucose (UA) 100mg/dL (NEGATIVE) Urine Ketones Negativemg/dL (NEGATIVE) Urine Occult Blood Trace (NEGATIVE) Urine Nitrite Negative (NEGATIVE) Urine Bilirubin Negative (NEGATIVE) Urine Urobilinogen Normalmg/dL (NORMAL) Urine Leukocyte Esterase Negative (NEGATIVE) Urine RBC 3-10/hpf (0-2) Urine WBC 0-5/hpf (0-5) Urine Epithelial Cells Occasional/hpf (NONE-MOD) Urine Crystals None seen (NONE SEEN) Urine Bacteria Few/hpf (NONE-FEW) Urine Hyaline Casts None/lpf (NONE) Urine Granular Casts None seen (NONE SEEN) Urine Waxy Casts None seen (NONE SEEN) Urine Red Blood Cell Casts None seen (NONE SEEN) Urine White Blood Cell Casts None seen (NONE SEEN) Urine Mucus Present (None Seen) Urine Trichomonas None seen (NONE SEEN) Urine Yeast None (NONE SEEN) Urinalysis Comment None Urine Culture Reflexed Not indicated Test 05/28/17 00:34 05/28/17 06:30 05/28/17 12:43 05/28/17 18:00 Activated Partial Thromboplast Time 32.4sec (22.8-33.0) 44.8sec (22.8-33.0) 40.6sec (22.8-33.0) 45.5sec (22.8-33.0) Total Creatine Kinase 256U/L (21-232) Creatine Kinase MB 12.4ng/mL (0.0-10.4) Creatine Kinase MB % 4.8% (0.0-5.0) Troponin T 0.031ug/L (0.0-0.011) 0.030ug/L (0.0-0.011) White Blood Count 7.8th/mm3 (3.8-10.1) Red Blood Count 4.41mil/mm3 (4.40-5.80) Hemoglobin 12.6g/dL (13.8-17.2) Hematocrit 40.0% (41.0-50.0) Mean Corpuscular Volume 90.7fL (81-100) Mean Corpuscular Hemoglobin 28.6pg (27.0-35.0) Mean Corpuscular Hemoglobin Concent 31.5% (32.0-37.0) Red Cell Distribution Width 15.0% (12.3-15.4) Platelet Count 197bil/L (150-400) Neutrophils (%) (Auto) 69.4% (40-74) Lymphocytes (%) (Auto) 20.0% (14-46) Monocytes (%) (Auto) 8.0% (4-12) Eosinophils (%) (Auto) 2.2% (0-5) Basophils (%) (Auto) 0.3% (0-3) Sodium Level 138mEq/L (134-144) Potassium Level 3.9mEq/L (3.5-5.2) Chloride Level 100mEq/L (97-108) Carbon Dioxide Level 24mmol/L (18-29) Blood Urea Nitrogen 26mg/dL (8-27) Creatinine 0.97mg/dL (0.76-1.27) Estimat Glomerular Filtration Rate 82mL/min (>59) Glucose Level 149mg/dL (60-99) Calcium Level 9.2mg/dL (8.5-10.1) Phosphorus Level 4.1mg/dL (2.5-4.9) Magnesium Level 1.9mg/dL (1.6-2.6) Total Bilirubin 0.3mg/dL (0.0-1.2) Aspartate Amino Transf (AST/SGOT) 17U/L (0-50) Alanine Aminotransferase (ALT/SGPT) 22U/L (0-44) Alkaline Phosphatase 99U/L (25-160) Total Protein 6.1g/dL (6.4-8.4) Albumin 3.5g/dL (3.4-5.0) Triglycerides Level 192mg/dL (0-149) Cholesterol Level 127mg/dL (100-199) LDL Cholesterol, Calculated 51.600mg/dL (0-99) VLDL Cholesterol 38.400mg/dL HDL Cholesterol 37mg/dL (>39) Cholesterol/HDL Ratio 3.43 (0.0-4.4) Procalcitonin 0.10ng/mL (0.00-0.08) Test 05/29/17 00:15 05/29/17 06:31 05/29/17 12:35 Activated Partial Thromboplast Time 45.5sec (22.8-33.0) 45.9sec (22.8-33.0) 44.9sec (22.8-33.0) Hemoglobin 12.9g/dL (13.8-17.2) Hematocrit 40.7% (41.0-50.0) Result Diagram: 05/29/17 0631 05/28/17 0630 X-Rays, CTs and MRIs Chest x-ray IMPRESSION: Patchy bibasilar consolidative opacities suggesting aspiration or pneumonia. Recommend clinical correlation and continued radiographic followup Dictated by: Alex Boston M.D. on 05/27/2017 at 16:22 12-lead ECG See history of present illness Cardiac Echo Impressions Name: JOHN ALVARES LStudy Date: 0 05/28/2017 Height: 73 in Hospital Exam Location: [facility] Weight: 285 lb Gender: Male BSA: 2.5 m2 : 1945 Age: 71 yrs BP: 126/73 mmHg Reason For Study: Chest pain Ordering Physician: Performed By: Rebekah Kirby Referring Physician: Serafin Dyer Interpretation Summary The left ventricle is normal in size. Left ventricular systolic function is normal without focal wall motion abnormalities. The ejection fraction is estimated to be 60-65%. The right ventricle is normal in size, thickness and function. The right ventricular systolic pressure is estimated at 32 mmHg assuming a right atrial pressure of 8 mm Hg. The left atrium is mildly dilated. Right atrial size is normal. There is moderate aortic stenosis. The calculated aortic valve area is 1.4 cm2. The peak aortic velocity is 3.2 m/sec. The peak aortic velocity on the previous exam was 3.2 m/sec. There is mild aortic regurgitation. There is no other significant valvular heart disease. The aortic root is mildly dilated. The ascending aorta is mild-moderately enlarged. The aortic arch is mildly enlarged. Assessment & Plan 71-year-old male with numerous cardiac risk factors and previous SD requiring 2 stents presents emergency department with acute chest pain on exertion associated with nitroglycerin with no ST elevations on EKG but positive troponin NSTEMI; present on admission; ongoing -Presents with acute chest pain relieved with nitroglycerin; positive troponin -Numerous cardiac risk factors -ED discussed with Dr. Epstein and cardiology will see the patient today to assess for cath -If any signs of worsening chest pain contact cardiology immediately -Started on heparin drip -Patient took aspirin this morning -We will hold Plavix until sure the patient's nonsurgical candidate -Smoking cessation discussed -Nothing by mouth until tomorrow -Atorvastatin 40 mg daily -Echo which was done today see report -Morphine and nitroglycerin -Heart rate in the 60s and beta vj with hold -Continue daily aspirin -trend troponin -Patient scheduled for cardiac catheterization later today Hypomagnesemia; present on admission; ongoing -Replace with 2 gm Hypertension; present on admission; ongoing -Patient's blood pressure is well controlled at the moment -Continue on carvedilol and hydrochlorothiazide after med rec confirmed Type II diabetes; present on admission; ongoing -Patient is on metformin 500 mg twice a day -Also on 40 units of Lantus at bedtime; NovoLog sliding scale -Continue Lantus 20 units tonight -We will place on low correctional -Hold metformin Nicotine dependence; present on admission; ongoing -26-xvde-irue history -Patient currently down to half a pack a day -Nicotine patch -Smoking cessation discussed Hyperlipidemia-continue atorvastatin GERD-famotidine Full code GI Prophylaxis: H2 vj VTE Prophylaxis: Other (heparin drip) Resuscitation Status: CPR: Attempt Resuscitation Time spent 30 minutes Eloise Pruett MD May 29, 2017 13:47
[2017-05-29] MEDS ORDERED: Heparin 10,000 Unit/1,000 mL NS Premix IV ONE (14:22)
[2017-05-29] MEDS ORDERED: Heparin 1,000 Unit/mL 10 mL Inj ONE (14:23)
[2017-05-29] MEDS ORDERED: Heparin 1,000 Units/500 mL NS Premix IV ONE (14:23)
[2017-05-29] MEDS ORDERED: 0.9% Sodium Chloride 1,000 ML ONE (14:24)
[2017-05-29] MEDS ORDERED: fentaNYL-PF 50 mCg/mL 2 mL Inj ONE (14:49)
[2017-05-29] MEDS ORDERED: 0.9% Sodium Chloride 1,000 ML IV PRN (16:30)
[2017-05-29] MEDS ORDERED: Ondansetron 2 mg/mL 2 mL Inj IVPUSH PRN (16:30)
--- NOTE | 2017-05-29 17:14 | PCM.DIMED ---
Discharge Instructions Date of Service May 29, 2017 Dates of Hospitalization May 27, 2017 at 17:48 Discharge Diagnosis Discharge Diagnosis NSTEMI with normal cardiac catheterization Diet Discharge Diet: Heart Healthy Activity Discharge Activity: Other (as tolerated and as per cardiology instructions) Patient Instructions Follow-up Provider: Serafin Dyer DO Follow-up with PCP in: 1 week (or sooner if problems.) Eloise Pruett MD May 29, 2017 17:14
--- NOTE | 2017-05-29 17:18 | PCM.DC.MED ---
Discharge Summary Date of Service May 29, 2017 Dates of Hospitalization Date of Hospital Admission May 27, 2017 at 17:48 Date of Discharge: May 29, 2017 Providers: Admitting Physician: Aditya Lawton MD Primary Care Physician: Serafin Dyer DO Attending Physician: Eloise Pruett MD Diagnosis at Time of Discharge Diagnosis at Time of Discharge NSTEMI with normal cardiac catheterization Consultations Cardiology Procedures XRay, CTs & MRIs Chest x-ray IMPRESSION: Patchy bibasilar consolidative opacities suggesting aspiration or pneumonia. Recommend clinical correlation and continued radiographic followup Dictated by: Alex Boston M.D. on 05/27/2017 at 16:22 ECG 12 Lead See history of present illness Cardiac Echo Impression Name: JOHN ALVARESudy Date: 05/28/2017 Height: 73 in Hospital Exam Location: [facility] Weight: 285 lb Gender: Male BSA: 2.5 m2 : 1945 Age: 71 yrs BP: 126/73 mmHg Reason For Study: Chest pain Ordering Physician: Performed By: Rebekah Kirby Referring Physician: Serafin Dyer Interpretation Summary The left ventricle is normal in size. Left ventricular systolic function is normal without focal wall motion abnormalities. The ejection fraction is estimated to be 60-65%. The right ventricle is normal in size, thickness and function. The right ventricular systolic pressure is estimated at 32 mmHg assuming a right atrial pressure of 8 mm Hg. The left atrium is mildly dilated. Right atrial size is normal. There is moderate aortic stenosis. The calculated aortic valve area is 1.4 cm2. The peak aortic velocity is 3.2 m/sec. The peak aortic velocity on the previous exam was 3.2 m/sec. There is mild aortic regurgitation. There is no other significant valvular heart disease. The aortic root is mildly dilated. The ascending aorta is mild-moderately enlarged. The aortic arch is mildly enlarged. Brief History 71-year-old male with a history of KS with stents 2, 50+ pack year history of smoking, diabetes, and hypertension who presented to emergency department today from his work via EMS due to 7/10 dull, substernal, nonradiating chest pain that started while he was lifting heavy boxes around 1400. The patient states that the pain set mass chest and did not radiate, was free of diaphoresis, and denies any shortness of breath, lightheadedness, or dizziness. Patient was given nitroglycerin by EMS which he states helped resolve the pain. Patient denies recent fever, chills, nausea, vomiting, or numbness/tingling. Patient's last KS was November 2013 and he states that Dr. Olvera stented to his arteries. Patient states that he was on Plavix until about a year ago when he was instructed to stop taking the Plavix and only take aspirin. Patient states he is compliant with his medications Emergency department the patient's chest pain completely resolved with morphine and nitroglycerin. First troponin returned elevated at 0.042. Patient also has some low magnesium. EKG demonstrated normal sinus rhythm with a right bundle branch block. Hospital Course 71-year-old male with numerous cardiac risk factors and previous KS requiring 2 stents presents emergency department with acute chest pain on exertion associated with nitroglycerin with no ST elevations on EKG but positive troponin NSTEMI; present on admission; ongoing -Presents with acute chest pain relieved with nitroglycerin; positive troponin -Numerous cardiac risk factors -ED discussed with Dr. Epstein and cardiology will see the patient today to assess for cath -If any signs of worsening chest pain contact cardiology immediately -Started on heparin drip -Patient took aspirin this morning -We will hold Plavix until sure the patient's nonsurgical candidate -Smoking cessation discussed -Nothing by mouth until tomorrow -Atorvastatin 40 mg daily -Echo which was done today see report -Morphine and nitroglycerin -Heart rate in the 60s and beta vj with hold -Continue daily aspirin -trend troponin -Patient had cardiac catheterization this afternoon and per Dr. Dao his scientist electronics there was no significant abnormalities. She recommended that patient can be discharged home after 4 hours of bedrest which will be at 8 PM unless there were any issues. Hypomagnesemia; present on admission; ongoing -Replace with 2 gm Hypertension; present on admission; ongoing -Patient's blood pressure is well controlled at the moment -Continue on carvedilol and hydrochlorothiazide after med rec confirmed Type II diabetes; present on admission; ongoing -Patient is on metformin 500 mg twice a day -Also on 40 units of Lantus at bedtime; NovoLog sliding scale -Continue Lantus 20 units tonight -We will place on low correctional -Hold metformin Nicotine dependence; present on admission; ongoing -[id number] history -Patient currently down to half a pack a day -Nicotine patch -Smoking cessation discussed Hyperlipidemia-continue atorvastatin GERD-famotidine Full code Exam Vital Signs (Last) Date Time Temp Pulse Resp B/P Pulse Ox O2 Delivery O2 Flow Rate FiO2 05/29/17 17:00 60 14 142/89 96 Room Air 05/29/17 11:05 36.6 05/29/17 05:35 2.00 Exam See progress note for today Test 05/27/17 15:35 05/27/17 18:13 05/27/17 22:06 05/28/17 00:34 Hold Quinonez Top Tube Received (Received) Hemoglobin A1c 8.1% (4.8-5.6) Urine Color Yellow (YELLOW) Urine Appearance Hazy (CLEAR,HAZY) Urine pH 5.5 (5.0-8.0) Urine Specific [place] 1.025 (1.003-1.035) Urine Protein Negativemg/dL (NEG,TRACE) Urine Glucose (UA) 100mg/dL (NEGATIVE) Urine Ketones Negativemg/dL (NEGATIVE) Urine Occult Blood Trace (NEGATIVE) Urine Nitrite Negative (NEGATIVE) Urine Bilirubin Negative (NEGATIVE) Urine Urobilinogen Normalmg/dL (NORMAL) Urine Leukocyte Esterase Negative (NEGATIVE) Urine RBC 3-10/hpf (0-2) Urine WBC 0-5/hpf (0-5) Urine Epithelial Cells Occasional/hpf (NONE-MOD) Urine Crystals None seen (NONE SEEN) Urine Bacteria Few/hpf (NONE-FEW) Urine Hyaline Casts None/lpf (NONE) Urine Granular Casts None seen (NONE SEEN) Urine Waxy Casts None seen (NONE SEEN) Urine Red Blood Cell Casts None seen (NONE SEEN) Urine White Blood Cell Casts None seen (NONE SEEN) Urine Mucus Present (None Seen) Urine Trichomonas None seen (NONE SEEN) Urine Yeast None (NONE SEEN) Urinalysis Comment None Urine Culture Reflexed Not indicated Total Creatine Kinase 256U/L (21-232) Creatine Kinase MB 12.4ng/mL (0.0-10.4) Creatine Kinase MB % 4.8% (0.0-5.0) Test 05/28/17 06:30 05/29/17 06:31 05/29/17 12:35 White Blood Count 7.8th/mm3 (3.8-10.1) Red Blood Count 4.41mil/mm3 (4.40-5.80) Mean Corpuscular Volume 90.7fL (81-100) Mean Corpuscular Hemoglobin 28.6pg (27.0-35.0) Mean Corpuscular Hemoglobin Concent 31.5% (32.0-37.0) Red Cell Distribution Width 15.0% (12.3-15.4) Platelet Count 197bil/L (150-400) Neutrophils (%) (Auto) 69.4% (40-74) Lymphocytes (%) (Auto) 20.0% (14-46) Monocytes (%) (Auto) 8.0% (4-12) Eosinophils (%) (Auto) 2.2% (0-5) Basophils (%) (Auto) 0.3% (0-3) Sodium Level 138mEq/L (134-144) Potassium Level 3.9mEq/L (3.5-5.2) Chloride Level 100mEq/L (97-108) Carbon Dioxide Level 24mmol/L (18-29) Blood Urea Nitrogen 26mg/dL (8-27) Creatinine 0.97mg/dL (0.76-1.27) Estimat Glomerular Filtration Rate 82mL/min (>59) Glucose Level 149mg/dL (60-99) Calcium Level 9.2mg/dL (8.5-10.1) Phosphorus Level 4.1mg/dL (2.5-4.9) Magnesium Level 1.9mg/dL (1.6-2.6) Total Bilirubin 0.3mg/dL (0.0-1.2) Aspartate Amino Transf (AST/SGOT) 17U/L (0-50) Alanine Aminotransferase (ALT/SGPT) 22U/L (0-44) Alkaline Phosphatase 99U/L (25-160) Troponin T 0.030ug/L (0.0-0.011) Total Protein 6.1g/dL (6.4-8.4) Albumin 3.5g/dL (3.4-5.0) Triglycerides Level 192mg/dL (0-149) Cholesterol Level 127mg/dL (100-199) LDL Cholesterol, Calculated 51.600mg/dL (0-99) VLDL Cholesterol 38.400mg/dL HDL Cholesterol 37mg/dL (>39) Cholesterol/HDL Ratio 3.43 (0.0-4.4) Procalcitonin 0.10ng/mL (0.00-0.08) Hemoglobin 12.9g/dL (13.8-17.2) Hematocrit 40.7% (41.0-50.0) Activated Partial Thromboplast Time 44.9sec (22.8-33.0) Discharge Medications Discharge Medications Albuterol/Ipratropium (Combivent Respimat Inhal [place]) 120 Spr/4 Gm Inhaler 1 PUFF INH DAILY (Reported) Aspirin (Aspirin) 81 Mg Tablet 81 MG PO HS (Reported) Atorvastatin Calcium (Atorvastatin Calcium) 40 Mg Tablet 40 MG PO DAILY ( Reported) Carvedilol (Coreg) 6.25 Mg Tablet 6.25 MG PO QAM (Reported) Finasteride (Finasteride) 5 Mg Tablet 5 MG PO QAM (Reported) Fluticasone/Salmeterol (Advair 500-50 Diskus) 1 Each Disk.w.dev 1 PUFF INH BID ( Reported) Hydrochlorothiazide (Hydrochlorothiazide) 25 Mg Tablet 25 MG PO DAILY (Reported ) Insulin Glargine (Lantus U100 Solostar Insulin Pen) 100 Unit/1 Ml Insuln.pen 75 UNITS SUBQ HS (Reported) Losartan Potassium (Losartan Potassium) 100 Mg Tablet 100 MG PO DAILY (Reported ) Metformin (Metformin) 500 Mg Tablet 500 MG PO BIDBL (Reported) Metformin (Metformin) 500 Mg Tablet 1,000 MG PO HS (Reported) PM dose Omeprazole (Omeprazole) 20 Mg Capsule.dr 20 MG PO QAM (Reported) Potassium Chloride (Potassium Chloride) 20 Meq Tab.er.prt 20 MEQ PO HS (Reported ) Tamsulosin ER (Tamsulosin ER) 0.4 Mg Cap.er.24h 0.4 MG PO HS (Reported) Trazodone (Trazodone) 100 Mg Tablet 100 MG PO HS (Reported) As needed Insulin Aspart (NovoLOG U-100 Pen) 100 Unit/Ml Insuln.pen 20-25 UNITS SUBQ TIDWM PRN PRN sliding scale (Reported) Nitroglycerin SL (Nitrostat) 0.4 Mg Tab.subl 0.4 MG SL Q5MIN PRN PRN For Chest Pain (Reported) Followup Plan Discharge Diet: Heart Healthy Discharge Activity: Other (as tolerated and as per cardiology instructions) Follow-up Provider: Serafin Dyer DO Follow-up with PCP in: 1 week (or sooner if problems.) Time spent Greater than 30 minutes was spent in preparation of discharge with greater than 50% of that time dedicated to patient counseling and coordination of care. copies to: Serafin Dyer Cheryl A MD May 29, 2017 17:18
--- NOTE | 2017-05-29 17:39 | CS94 ---
[address] [address] DIAGNOSTIC CARDIAC CATHETERIZATION PATIENT: JOHN ALVARES : 1945 MR#: [id number] ADMIT: 05/27/2017 JOB ID: [id number] SERVICE DATE: 05/29/2017 CHIEF COMPLAINT: Chest pain and elevated troponin-T. HISTORY OF PRESENT ILLNESS: The patient is a 71-year-old man with ongoing smoking, hypertension, hyperlipidemia, and history of coronary artery disease status post two stents deployed two years ago. He comes in with non-STEMI and he presents for left heart catheterization. PROCEDURE PERFORMED: Following informed consent, the groin was prepped and draped in the usual sterile fashion. A 6-Sloven[place] sheath was placed in the right common femoral artery. Sheath placement was confirmed via femoral angiogram. JL4 and JR4 catheter was used to engage left main and right coronary artery ostia, respectively. Hand injection and craniocaudal angulation was used to obtain selective coronary angiograms. All exchanges were performed over a wire. A pigtail catheter was advanced into the left ventricle. Left ventricular end-diastolic pressure was recorded. Ventriculogram was deferred due to high filling pressure. A StarClose device closure device was used to obtain hemostasis. FINDINGS: 1. Hemodynamically the patient was stable. Blood pressure 159/74. End-diastolic pressure was 33; there is a 10 mm peak to peak gradient. 2. Femoral angiogram: Right superficial femoral artery arises from the common femoral artery and profunda femoris. Mild calcification was present but no hemodynamically significant coronary artery disease was present. 3. Coronary angiograms: Left main is a short vessel. Excellent blow back. No dampening on engagement. It gives rise to left anterior descending, circumflex, and ramus intermedius. There is moderate calcification present in the ostium of the left main, but nothing hemodynamically significant. 4. Left anterior descending wraps around the apex. It gives rise to a large second diagonal branch and then travels in the interventricular groove, giving rise to multiple septal perforators. There is a 30% to 40% lesion present past the 2nd diagonal but nothing hemodynamically significant. 5. The circumflex is a nondominant vessel. It is moderately calcified. It demonstrates a 30% stenosis in the proximal portion of the vessel. It gives rise to a small first obtuse marginal, a large second obtuse marginal, and a large third obtuse marginal. There is a previously deployed stent present in the third obtuse marginal vessel. It appears to be patent, with no evidence of in-stent restenosis. 6. Right coronary artery is a dominant vessel. It gives rise to a PDA. There is a previously deployed stent in the right coronary artery and it appears to be patent, with minimal in-stent restenosis of 30%-40%. IMPRESSION: Reassuring cardiac catheterization. No evidence of in-stent restenosis to explain the patient's symptoms of chest discomfort and troponin elevation. RECOMMENDATION: Therapeutic lifestyle change program, smoking cessation, and weight loss. I recommend continued working on his coronary artery disease risk factors in that way. 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 Thank you very much for the opportunity to evaluate this patient.
--- NOTE | 2017-05-30 03:20 | PROG NOTE ---
[address] [address] PROGRESS NOTE PATIENT: JOHN ALVARES : 1945 MR#: [id number] ADMIT: 05/27/2017 JOB ID: [id number] DATE: 05/29/2017 SUBJECTIVE: Overnight, patient had no recurrence of chest discomfort. OBJECTIVE: Vital signs: Temperature 36.7. Blood pressure 128/84, up to 160/67. Pulse 48, up to 72 beats per minute. Satting 91% to 96% on 2 L nasal cannula. Well-nourished man in no apparent distress. Eyes: No scleral icterus. Neck: Supple. No lymphadenopathy. No carotid bruits. Heart: Normal S1, S2. No murmurs. Lungs: Clear to auscultation anteriorly. Patient's labs were reviewed. CBC is stable. Creatinine is normal. Troponin T was mildly elevated at 0.03. Lipids are at goal with the exception of slightly elevated triglycerides. Total cholesterol was 127, triglycerides 192, HDL 37, LDL was 52. ASSESSMENT AND PLAN: In summary, this is a 71-year-old man admitted with sib-FM-vzrapriek myocardial infarction. I cathed him this afternoon and he was found to have no hemodynamically significant coronary artery disease. Previously deployed stents are patent. Therefore,his mild troponin leak is likely due to demand ischemia in the setting of hypoxia and vigorous exercise. The plan for this patient is to continue working on therapeutic lifestyle change program and work on smoking cessation and weight loss. He will continue aspirin 81 mg daily, Lipitor 40 mg daily, carvedilol 6.25 mg daily, hydrochlorothiazide 25 mg daily, losartan 100 mg daily, potassium supplement 20 mEq daily, and his diabetes medication. He will follow up with Dr. Olvera. Thank you very much for the opportunity to evaluate him.
== END 2017-05-29 20:34 | disposition home or self-care (01) | DRG 287 ==
LOC: EDBD 14:35 → SED 14:35 → MPC 17:48
PROVIDERS: ADMIT Internal Medicine; ATTEND Internal Medicine
PROC: 4A023N7 Measurement of Cardiac Sampling and Pressure, Left Heart, Percutaneous Approach (ICD-10-PCS; principal; 2017-05-29)
PROC: B2111ZZ Fluoroscopy of Multiple Coronary Arteries using Low Osmolar Contrast (ICD-10-PCS; 2017-05-29)
PROC: 4A033BC Measurement of Arterial Pressure, Coronary, Percutaneous Approach (ICD-10-PCS; 2017-05-29)
DX: I24.8 Other forms of acute ischemic heart disease (principal); I10 Essential (primary) hypertension; E11.9 Type 2 diabetes mellitus without complications; F17.210 Nicotine dependence, cigarettes, uncomplicated; E78.5 Hyperlipidemia, unspecified; K21.9 Gastro-esophageal reflux disease without esophagitis; Z79.4 Long term (current) use of insulin; Z95.5 Presence of coronary angioplasty implant and graft; E83.42 Hypomagnesemia; I25.2 Old myocardial infarction; I25.118 Atherosclerotic heart disease of native coronary artery with other forms of angina pectoris